=== PATIENT | female | born 1985 | race African-American/Black ===

== ENCOUNTER 2017-04-18 18:11 | Emergency (ER) | payer MEDICAID ==
--- NOTE | 2017-04-18 18:14 | ED Physician Documentation ---
PD HPI MHE - Stated complaint Stated Complaint: ANXIETY - History obtained from History obtained from: Patient - History of Present Illness Primary symptom: Other (31-year-old otherwise healthy woman with occasional panic attacks which have been worse over the last few days and intermittent feelings of anxiety. In the past Xanax has been helpful. 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 - Present Medications Home Medications: Ambulatory Orders Medication Instructions Recorded Confirmed Alprazolam [Xanax] 0.25 - 1 tab PO Q6HR PRN #20 tablet 04/18/17 - Allergies Allergies/Adverse Reactions: Allergies Allergy/AdvReac Type Severity Reaction Status Date / Time No Known Drug Allergies Allergy Verified 11/15/15 19:40 - Social History Does the pt smoke?: No Smoking Status: Never smoker Does the pt drink ETOH?: No Does the pt have substance abuse?: No - Immunizations Immunizations are current?: Yes - POLST Patient has POLST: No PD ED PE NORMAL - Vitals Vital signs reviewed: Yes - General General: Alert and oriented X 3, No acute distress - Cardiac Cardiac: RRR, No murmur - Respiratory Respiratory: Clear bilaterally - Neuro Neuro: Alert and oriented X 3 Eye Opening: Spontaneous Motor: Obeys Commands Verbal: Oriented GCS Score: 15 - Psych Psych: Normal mood, Normal affect Results - Vitals Vitals: Oxygen O2 Source Room air Departure - Departure Disposition: Home, Self Care Clinical Impression: Panic attack Condition: Good Record reviewed to determine appropriate education?: Yes Instructions: Alprazolam tablets, ED Panic Attack Prescriptions: Alprazolam [Xanax] 0.25 - 1 tab PO Q6HR PRN #20 tablet PRN Reason: Anxiety Comments: Call your doctor to arrange a follow-up appointment, make the next available appointment. In the interim, return anytime if worse or if new symptoms develop.
[2017-04-18 18:20] VITALS: BP 109/74
== END 2017-04-18 18:35 | disposition home or self-care (01) ==
LOC: ED 18:11
DX: F41.0 Panic disorder [episodic paroxysmal anxiety] (principal)
CPT/HCPCS: 99283

== ENCOUNTER 2017-11-05 17:07 | Emergency (ER) | payer SELFPAY ==
[2017-11-05] MEDS ORDERED: SUMAtriptan 6 MG/0.5 ML VIAL SUBQ STA (17:16)
--- NOTE | 2017-11-05 17:17 | ED Physician Documentation ---
PD HPI HEADACHE - Stated complaint Stated Complaint: MIGRAINE - History obtained from History obtained from: Patient - History of Present Illness Timing - onset: Other (She has had a gradual onset right retro-orbital headache since yesterday. She has these not infrequently. Is not the worst headache of her life. She feels like there is throbbing behind the right eye and is light sensitive. She tried [id number] meds including Benadryl and ibuprofen without relief. No possibility of . 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, Other - Present Medications Home Medications: Ambulatory Orders Medication Instructions Recorded Confirmed SUMAtriptan [Imitrex] 25 mg PO BID PRN #10 tablet 11/05/17 - Allergies Allergies/Adverse Reactions: Allergies Allergy/AdvReac Type Severity Reaction Status Date / Time No Known Drug Allergies Allergy Verified 04/18/17 18:20 - Social History Does the pt smoke?: No Smoking Status: Never smoker Does the pt drink ETOH?: No Does the pt have substance abuse?: No - Immunizations Immunizations are current?: Yes - POLST Patient has POLST: No PD ED PE NORMAL - Vitals Vital signs reviewed: Yes - General General: Alert and oriented X 3, No acute distress - HEENT HEENT: PERRL, EOMI, Pharynx benign - Neck Neck: Supple, no meningeal sign, No bony TTP - Neuro Neuro: Alert and oriented X 3, 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 As such I doubt subarachnoid hemorrhage. There are no infectious symptoms such as fever or stiff neck to make me suspect meningitis. No carbon monoxide exposure by history. She was given Imitrex subcutaneously with complete relief. - Sepsis Event Vital Signs: Vital Signs - 24 hr 11/05/17 17:17 Temperature 36.5 C Heart Rate 72 Respiratory 16 Rate Blood Pressure 104/62 O2 Saturation 100 Oxygen O2 Source Room air Departure - Departure Disposition: 01 Home, Self Care Clinical Impression: Migraine Qualifiers: Migraine type: with aura Status migrainosus presence: with status migrainosus Intractability: not intractable Qualified Code(s): G43.101 - Migraine with aura, not intractable, with status migrainosus Condition: Good Record reviewed to determine appropriate education?: Yes Instructions: ED Headache Migraine, Imitrex Prescriptions: SUMAtriptan [Imitrex] 25 mg PO BID PRN #10 tablet PRN Reason: Headache
[2017-11-05 17:22] VITALS: BP 104/62
== END 2017-11-05 18:09 | disposition home or self-care (01) ==
LOC: ED 17:07
DX: G43.101 Migraine with aura, not intractable, with status migrainosus (principal)
CPT/HCPCS: 96372; 99283

== ENCOUNTER 2017-11-06 10:36 | Emergency (ER) | payer SELFPAY ==
--- NOTE | 2017-11-06 11:46 | ED Physician Documentation ---
PD HPI HEADACHE - Stated complaint Stated Complaint: MIGRAINE - Chief complaint Chief Complaint: Neuro - History obtained from History obtained from: Patient - History of Present Illness Timing - onset: Yesterday Timing - onset during: Rest Timing - duration: Days (2) Timing - details: Gradual onset, Still present Worst headache ever?: No: Worst headache ever? (has not had this prolonged) Location: Left Quality: Throbbing, Aching Associated symptoms: Nausea. 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 Has had migraine persist into today and worse this morning.) Review of Systems Constitutional: denies: Fever, Chills, Myalgias Nose: denies: Rhinorrhea / runny nose, Congestion Throat: denies: Sore throat Respiratory: denies: Cough GI: reports: Nausea. 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, Other - Present Medications Home Medications: Ambulatory Orders Medication Instructions Recorded Confirmed SUMAtriptan [Imitrex] 25 mg PO BID PRN #10 tablet 11/05/17 Dexamethasone [Decadron] 4 mg PO DAILY #5 tablet 11/06/17 Ondansetron HCl [Zofran] 4 mg PO Q6H PRN #20 tablet 11/06/17 - Allergies Allergies/Adverse Reactions: Allergies Allergy/AdvReac Type Severity Reaction Status Date / Time No Known Drug Allergies Allergy Verified 11/06/17 11:09 - Social History Does the pt smoke?: No Smoking Status: Never smoker Does the pt drink ETOH?: No Does the pt have substance abuse?: No - Immunizations Immunizations are current?: Yes - POLST Patient has POLST: No PD ED PE NORMAL - Vitals Vital signs reviewed: Yes - General General: Alert and oriented X 3, Well developed/nourished - HEENT HEENT: Atraumatic, PERRL, EOMI (light sensitive), Moist mucous membranes, Pharynx benign - Neck Neck: Supple, no meningeal sign, No adenopathy - Cardiac Cardiac: RRR, No murmur - Respiratory Respiratory: Clear bilaterally - Derm Derm: Normal color, Warm and dry - Extremities Extremities: No tenderness to palpate, Normal ROM s pain - Neuro Neuro: Alert and oriented X 3, No motor deficit, Normal speech Results - Vitals Vitals: Vital Signs - 24 hr 11/06/17 11/06/17 11:05 13:34 Temperature 36.4 C L Heart Rate 65 75 Respiratory 16 18 Rate Blood Pressure 120/77 94/63 O2 Saturation 100 100 Oxygen O2 Source Room air PD MEDICAL DECISION MAKING - ED course Complexity details: re-evaluated patient (headahce gone with IV fluids and migraine "cocktail"), considered differential, d/w patient - Sepsis Event Vital Signs: Vital Signs - 24 hr 11/06/17 11/06/17 11:05 13:34 Temperature 36.4 C L Heart Rate 65 75 Respiratory 16 18 Rate Blood Pressure 120/77 94/63 O2 Saturation 100 100 Oxygen O2 Source Room air Departure - Departure Disposition: 01 Home, Self Care Clinical Impression: Migraine Qualifiers: Migraine type: without aura Status migrainosus presence: with status migrainosus Intractability: not intractable Qualified Code(s): G43.001 - Migraine without aura, not intractable, with status migrainosus Condition: Stable Record reviewed to determine appropriate education?: Yes Instructions: ED Headache Migraine Prescriptions: Dexamethasone [Decadron] 4 mg PO DAILY #5 tablet Ondansetron HCl [Zofran] 4 mg PO Q6H PRN #20 tablet PRN Reason: Nausea / Vomiting Comments: Drink lots of fluids. Consider continuing Decadron steroid daily for a few more days. For subsequent headaches use the previous Imitrex prescribed and can combine it with ibuprofen and ondansetron for nausea and see if that provides better and more consistent improvement. Follow-up with your primary care Discharge Date/Time: 11/06/17 14:28
[2017-11-06] MEDS ORDERED: diphenhydrAMINE INJ 50 MG/ML VIAL IVP STA (12:01)
[2017-11-06] MEDS ORDERED: KETOROLAC 60 MG/2 ML VIAL IVP STA (12:01)
[2017-11-06] MEDS ORDERED: DEXAMETHASONE 10 MG/ML VIAL IVP STA (12:01)
[2017-11-06] MEDS ORDERED: METOCLOPRAMIDE 10 MG/2 ML VIAL IVP STA (12:01)
[2017-11-06] MEDS ORDERED: SODIUM CHLORIDE 0.9% 1,000 ML IV ONE (12:02)
[2017-11-06 13:35] VITALS: BP 94/63
== END 2017-11-06 14:28 | disposition home or self-care (01) ==
LOC: ED 10:36
DX: G43.001 Migraine without aura, not intractable, with status migrainosus (principal)
CPT/HCPCS: 96361; 96374; 96375; 99283; J1200; J2765

== ENCOUNTER 2020-06-22 00:51 | Emergency (ER) | payer SELFPAY ==
--- NOTE | 2020-06-22 01:12 | ED Physician Documentation ---
PD HPI HEADACHE - Stated complaint Stated Complaint: CORTÉS/VOMITING - Chief complaint Chief Complaint: Neuro - History obtained from History obtained from: Patient - History of Present Illness Timing - onset: Enter time (18:00), Today Timing - onset during: Rest Timing - details: Abrupt onset Pain level max: 10 Pain level now: 10 Location: Right Associated symptoms: Nausea, Vomiting, Vision changes. No: Fever Improved by: Dark room Worsened by: Light Similar symptoms before: Diagnosis (migraine CORTÉS) Recently seen: Not recently seen - Additional information Additional information: Patient presents complaining of right retro-orbital headache, rapid onset at approximately 6 PM today while at home at rest while on a video conference call. she has nausea and vomiting, as well as decreased vision in the right eye, associated with this headache. Patient says she has had similar headaches as well as similar visual changes with previous migraine headaches. Review of Systems Constitutional: reports: Reviewed and negative Eyes: reports: Decreased vision (right eye), Photophobia GI: reports: Nausea, Vomiting. denies: Abdominal Pain Neurologic: reports: Headache. 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, Other - Present Medications Home Medications: Ambulatory Orders Medication Instructions Recorded Confirmed Ondansetron Odt [Zofran] 4 mg TL Q6H PRN #14 tablet 06/22/20 Sumatriptan Succinate [Imitrex] 50 mg PO ONCE PRN #20 tablet 06/22/20 - Allergies Allergies/Adverse Reactions: Allergies Allergy/AdvReac Type Severity Reaction Status Date / Time No Known Drug Allergies Allergy Verified 11/06/17 11:09 - Social History Does the pt smoke?: No Smoking Status: Never smoker Does the pt drink ETOH?: No Does the pt have substance abuse?: No - Immunizations Immunizations are current?: Yes - POLST Patient has POLST: No PD ED PE NORMAL - Vitals Vital signs reviewed: Yes - General General: Alert and oriented X 3, Well developed/nourished, Other (obvious painful discomfort, keeping eyes closed and lights are off in room for patient comfort) - HEENT HEENT: PERRL, EOMI - Neck Neck: Supple, no meningeal sign - Cardiac Cardiac: RRR, No murmur - Respiratory Respiratory: No respiratory distress, Clear bilaterally - Neuro Neuro: Alert and oriented X 3, No motor deficit, No sensory deficit, Normal speech Eye Opening: Spontaneous Motor: Obeys Commands Verbal: Oriented GCS Score: 15 Results - Vitals Vitals: Vital Signs - 24 hr 06/22/20 06/22/20 06/22/20 00:53 02:48 04:10 Temperature 36.6 C 36.6 C Heart Rate 60 57 L 67 Respiratory 16 16 16 Rate Blood Pressure 112/79 109/85 H 110/83 H O2 Saturation 100 100 98 Oxygen O2 Source Room air PD MEDICAL DECISION MAKING - ED course Complexity details: reviewed old records, re-evaluated patient, considered differential, d/w patient ED course: patient presents with severe right sided headache associated with nausea, vomiting, and decreased vision in her right eye. Patient says she has had similar migraine headaches in the past that have been associated with this visual change. We discussed options for treatment, and mutual decision made to use the same medications that were given on her last [facility] ED visit for migraine headache (October 2017). she is given IV Reglan, Toradol, Benadryl, Decadron. She is also given SQ Imitrex. She is also given normal saline IV. on reevaluation she is sleeping and in NAD, awakens to verbal and reports significant improvement in symptoms. she did not require further medications and was discharged in NAD, AAOx3. she is provided prescriptions for zofran and PO imitrex. Departure - Departure Disposition: 01 Home, Self Care Clinical Impression: Migraine Qualifiers: Migraine type: unspecified Status migrainosus presence: without status migrainosus Intractability: not intractable Qualified Code(s): G43.909 - Migraine, unspecified, not intractable, without status migrainosus Condition: Good Instructions: Imitrex, ED Headache Migraine Prescriptions: Sumatriptan Succinate [Imitrex] 50 mg PO ONCE PRN #20 tablet PRN Reason: Migraine Ondansetron Odt [Zofran] 4 mg TL Q6H PRN #14 tablet PRN Reason: Nausea / Vomiting Discharge Date/Time: 06/22/20 04:15
[2020-06-22] MEDS ORDERED: SODIUM CHLORIDE 0.9% 1,000 ML IV STA (01:21)
[2020-06-22] MEDS ORDERED: SUMAtriptan 6 MG/0.5 ML VIAL SUBQ STA (01:22)
[2020-06-22] MEDS ORDERED: KETOROLAC 30 MG/ML VIAL IVP STA (01:22)
[2020-06-22] MEDS ORDERED: METOCLOPRAMIDE 10 MG/2 ML VIAL IVP STA (01:22)
[2020-06-22] MEDS ORDERED: DEXAMETHASONE 10 MG/ML VIAL IVP STA (01:22)
[2020-06-22] MEDS ORDERED: diphenhydrAMINE INJ 50 MG/ML VIAL IVP STA (01:22)
[2020-06-22 04:18] VITALS: BP 110/83
== END 2020-06-22 04:15 | disposition home or self-care (01) ==
LOC: ED 00:51
DX: G43.909 Migraine, unspecified, not intractable, without status migrainosus (principal)
CPT/HCPCS: 96372; 96374; 96375; 99284; 99285; J1200; J2765; 36415; 80048; 84702; 85025

== ENCOUNTER 2020-11-03 14:29 | Emergency (ER) | payer OTHER ==
[2020-11-03 14:38] VITALS: BP 113/68
--- NOTE | 2020-11-03 15:16 | ED Physician Documentation ---
PD HPI BACK PAIN - Stated complaint Stated Complaint: BACK PX - Chief complaint Chief Complaint: Back Pain - History obtained from History obtained from: Patient - History of Present Illness Timing - onset: How many days ago (2) Timing - duration: Days (2) Timing - details: Abrupt onset, Still present Location: Upper, Right Quality: Pain, Spasm, Sharp Associated symptoms: No: Fever, Weakness, Numbness, Incontinent of urine, Unable to urinate, Hematuria, Incontinent of stool Improves with: Rest, Ice, Meds Worsened by: Movement, Lifting, Twisting, Palpation Contributing factors: Lifting, Other (injured at work with lifting a patient.) Similar symptoms before: Diagnosis (sciatica) Recently seen: Other - Additional information Additional information: 35-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 Today she is coming to work pain was bothering her bad enough that she came back to the doctor's office and was medicated with IM Toradol and dexamethasone. She had some improvement with this but really was too distracted with her pain to continue working. Review of Systems Constitutional: denies: Fever Eyes: denies: Decreased vision Ears: denies: Ear pain Nose: denies: Congestion Throat: denies: Sore throat Cardiac: denies: Chest pain / pressure Respiratory: denies: Dyspnea, Cough, Wheezing GI: denies: Abdominal Pain, Nausea, Vomiting, Constipation, Diarrhea : denies: Dysuria, Frequency Skin: denies: Rash Musculoskeletal: reports: Back pain. 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, Other - Present Medications Home Medications: Ambulatory Orders Medication Instructions Recorded Confirmed Ondansetron Odt [Zofran] 4 mg TL Q6H PRN #14 tablet 06/22/20 Sumatriptan Succinate [Imitrex] 50 mg PO ONCE PRN #20 tablet 06/22/20 Cyclobenzaprine [Flexeril] 10 mg PO TID PRN #20 tablet 11/03/20 HYDROcod/ACETAM 5/325 [[place] 5/325] 1 - 2 tablet PO Q6H PRN #14 tablet 11/03/20 - Allergies Allergies/Adverse Reactions: Allergies Allergy/AdvReac Type Severity Reaction Status Date / Time No Known Drug Allergies Allergy Verified 11/03/20 14:37 - Social History Does the pt smoke?: No Smoking Status: Never smoker Does the pt drink ETOH?: No Does the pt have substance abuse?: No - Immunizations Immunizations are current?: Yes - POLST Patient has POLST: No PD ED PE NORMAL - Vitals Vital signs reviewed: Yes (normal ) - General General: Alert and oriented X 3, No acute distress, Well developed/nourished - HEENT HEENT: Atraumatic, PERRL, EOMI - Neck Neck: Supple, no meningeal sign, No bony TTP - Cardiac Cardiac: RRR, No murmur - Respiratory Respiratory: No respiratory distress, Clear bilaterally, Other (There is marked point tenderness to the rhomboid muscles on the right side. This brings tears to the patient's eyes.) - Abdomen Abdomen: Soft, Non tender - Back Back: No CVA TTP, No spinal TTP - Derm Derm: Normal color, Warm and dry, No rash - Extremities Extremities: No deformity, No edema - Neuro Neuro: Alert and oriented X 3, catering sales manager 2-12 intact, No motor deficit, No sensory deficit, Normal speech Eye Opening: Spontaneous Motor: Obeys Commands Verbal: Oriented GCS Score: 15 - Psych Psych: Normal mood, Normal affect Results - Vitals Vitals: Vital Signs - 24 hr 11/03/20 14:34 Temperature 36.4 C L Heart Rate 86 Respiratory 20 Rate Blood Pressure 113/68 O2 Saturation 100 Oxygen O2 Source Room air PD MEDICAL DECISION MAKING - ED course Complexity details: considered differential, d/w patient ED course: 35-year-old female who injured herself at work with a strain of the right rhomboid muscles. Despite treatment here in the emergency department earlier with dexamethasone and Toradol the patient is distracted by pain and unable to continue to work. She will likely need 2 to 5 days off and pain medication a muscle relaxant. Departure - Departure Disposition: 01 Home, Self Care Clinical Impression: Rhomboid muscle strain Qualifiers: Encounter type: initial encounter Qualified Code(s): S29.012A - Strain of muscle and tendon of back wall of thorax, initial encounter Condition: Stable Instructions: ED Sprain Thoracic Spine Follow-Up: [facility] [Provider Group] Prescriptions: Cyclobenzaprine [Flexeril] 10 mg PO TID PRN #20 tablet PRN Reason: Spasms HYDROcod/ACETAM 5/325 [[place] 5/325] 1 - 2 tablet PO Q6H PRN #14 tablet PRN Reason: Pain Forms: Activity restrictions
== END 2020-11-03 15:37 | disposition home or self-care (01) ==
LOC: ED 14:29
DX: S29.012A Strain of muscle and tendon of back wall of thorax, initial encounter (principal); X50.0XXA Overexertion from strenuous movement or load, initial encounter; Y93.F2 Activity, caregiving, lifting; Y92.238 Other place in hospital as the place of occurrence of the external cause; Y99.0 Civilian activity done for income or pay
CPT/HCPCS: 99282; 99284

== ENCOUNTER 2021-01-12 09:46 | Emergency (ER) | payer SELFPAY ==
[2021-01-12] MEDS ORDERED: PROCHLORPERAZINE 10 MG/2 ML VIAL IVP STA (10:20)
[2021-01-12] MEDS ORDERED: SODIUM CHLORIDE 0.9% 1,000 ML IV STA (10:20)
[2021-01-12] MEDS ORDERED: KETOROLAC 30 MG/ML VIAL IVP STA (10:21)
[2021-01-12] MEDS ORDERED: DEXAMETHASONE 10 MG/ML VIAL IVP STA (10:21)
[2021-01-12] MEDS ORDERED: diphenhydrAMINE INJ 50 MG/ML VIAL IVP STA (10:21)
--- NOTE | 2021-01-12 11:04 | ED Physician Documentation ---
PD HPI HEADACHE - Stated complaint Stated Complaint: HEAD PX - Chief complaint Chief Complaint: Neuro - History obtained from History obtained from: Patient - History of Present Illness Timing - onset: Today Timing - onset during: Light activity Timing - duration: Hours Timing - details: Abrupt onset, Still present Location: Front Quality: Throbbing Associated symptoms: Nausea. No: Fever, Stiff neck, Vomiting Improved by: Rest, Dark room Worsened by: Light, Noise, Moving Contributing factors: No: Anticoagulated Similar symptoms before: Diagnosis (migraine) Recently seen: Not recently seen - Additional information Additional information: 35-year-old female with a history of migraines is out of her Imitrex and she has developed symptoms this morning of migraine typical of her usual symptoms. She is having some nausea she has a severe headache that is throbbing. She denies any other current illness. Review of Systems Constitutional: denies: Fever Eyes: reports: Photophobia. 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, Other - Present Medications Home Medications: Ambulatory Orders Medication Instructions Recorded Confirmed Ondansetron Odt [Zofran] 4 mg TL Q6H PRN #14 tablet 06/22/20 Sumatriptan Succinate [Imitrex] 50 mg PO ONCE PRN #20 tablet 06/22/20 Cyclobenzaprine [Flexeril] 10 mg PO TID PRN #20 tablet 11/03/20 HYDROcod/ACETAM 5/325 [[place] 5/325] 1 - 2 tablet PO Q6H PRN #14 tablet 11/03/20 Sumatriptan Succinate [Imitrex] 50 mg PO ONCE PRN #20 tablet 01/12/21 - Allergies Allergies/Adverse Reactions: Allergies Allergy/AdvReac Type Severity Reaction Status Date / Time No Known Drug Allergies Allergy Verified 01/12/21 09:53 - Social History Does the pt smoke?: No Smoking Status: Never smoker Does the pt drink ETOH?: No Does the pt have substance abuse?: No - Immunizations Immunizations are current?: Yes - POLST Patient has POLST: No PD ED PE NORMAL - General General: Alert and oriented X 3, Well developed/nourished, Other (Appears to be in pain with copy lathe operator tone and flattened affect) - HEENT HEENT: Atraumatic, PERRL, EOMI - Neck Neck: Supple, no meningeal sign, No bony TTP - Respiratory Respiratory: No respiratory distress - Derm Derm: Normal color, Warm and dry, No rash - Extremities Extremities: No deformity, No edema - Neuro Neuro: Alert and oriented X 3, sales development associate 2-12 intact, No motor deficit, Normal speech Eye Opening: Spontaneous Motor: Obeys Commands Verbal: Oriented GCS Score: 15 - Psych Psych: Normal mood Results - Vitals Vitals: Vital Signs - 24 hr 01/12/21 09:51 Temperature 36.6 C Heart Rate 60 Respiratory 16 Rate Blood Pressure 106/78 O2 Saturation 100 Oxygen O2 Source Room air PD MEDICAL DECISION MAKING - ED course Complexity details: reviewed old records, reviewed results, re-evaluated patient, considered differential, d/w patient ED course: 35-year-old female with a history of migraine has a migraine that started about midnight last night 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 She is treated for acute migraine headache with a migraine cocktail consisting of a liter of saline 10 mg of dexamethasone 30 mg of Toradol 25 mg of Benadryl and 10 mg of Compazine. She felt improved at the time of discharge. We are prescribing additional sumatriptan for the patient. Departure - Departure Disposition: 01 Home, Self Care Clinical Impression: Migraine Qualifiers: Migraine type: with aura Status migrainosus presence: without status migrainosus Intractability: not intractable Qualified Code(s): G43.109 - Migraine with aura, not intractable, without status migrainosus Condition: Stable Instructions: ED Headache Migraine Follow-Up: [facility] [place] [Provider Group] Prescriptions: Sumatriptan Succinate [Imitrex] 50 mg PO ONCE PRN #20 tablet PRN Reason: Migraine
[2021-01-12 11:20] VITALS: BP 133/92
== END 2021-01-12 12:09 | disposition home or self-care (01) ==
LOC: ED 09:46
DX: G43.109 Migraine with aura, not intractable, without status migrainosus (principal)
CPT/HCPCS: 96374; 96375; 99284; 99285; J1200

== ENCOUNTER 2021-11-21 07:04 | Outpatient (CLI) | payer BC ==
--- NOTE | 2021-11-21 09:01 | Ultrasound Report ---
PROCEDURE: Pelvic w/Transvaginal INDICATIONS: PRESENCE OF IUD TECHNIQUE: Real-time scanning was performed of the pelvic organs, with image documentation. Additional endovagi nal scanning was necessary due to incomplete visualization of the adnexal and endometrial structures by transabdominal scanning. COMPARISON: None. FINDINGS: Uterus: The uterus is anteverted measuring 8.2 x 3.2 x 4.9 cm. Volume is about 68 cc. IUD is in expec byron position. Endometrium measures 2 mm. Ovaries: Right ovary measures 4 x 2.2 cm, for a volume of 9 cc. Left ovary measures 2.5 x 2.3 cm, for a volume of 5 cc. Follicles are present bilaterally. Other: No pathologic free abdominal or pelvic fluid. IMPRESSION: Expected positioning of IUD. Otherwise no significant sonographic abnormality. Reviewed by: Michael Raza MD on 11/21/2021 9:00 AM PDT Approved by: Michael Raza MD on 11/21/2021 9:00 AM PDT Station ID: [id number]
== END 2021-11-21 07:05 | disposition home or self-care (01) ==
LOC: DI 07:04
PROVIDERS: ATTEND Nurse Practitioner
DX: Z97.5 Presence of (intrauterine) contraceptive device (principal)

== ENCOUNTER 2022-06-25 10:49 | Day surgery (SDC) | payer BC ==
[2022-06-25] MEDS: LACTATED RINGERS 1,000 ML IV ONE (11:07)
[2022-06-25 11:21] LABS: HCG UR QUAL NEGATIVE
[2022-06-25] MEDS ORDERED: ONDANSETRON 4 MG/2 ML VIAL ONE (11:25)
[2022-06-25] MEDS ORDERED: PROPOFOL 200 MG/20 ML VIAL IVP ONE (11:25)
[2022-06-25] MEDS ORDERED: MIDAZOLAM 2 MG/2 ML VIAL ONE (11:25)
--- NOTE | 2022-06-25 11:55 | OPERATIVE REPORT ---
Operative Report - General Planned Procedure: IUD removal under anesthesia Pre-Op Diagnosis: Retained IUD Procedure Performed: IUD removal under anesthesia Post Op Diagnosis: Retained IUD - Procedure Note Primary Surgeon: Ketan Heredia MD Secondary Surgeon: ROYCE Richey Anesthesia Provider: Jeni Holm CRNA Anesthesia Technique: General LMA Pathology: None IV Fluids (mL): 100 Estimated Blood Loss (mL): 0 Urine Output (mL): 0 (Voided prior to procedure) Complications: None - Other Other Information/Narrative: Due to the patient's anxiety, she was taken to the OR for IUD removal under anesthesia. She required LMA general anesthesia for relaxation. She is placed in dorsolithotomy position with legs in great white stirrups. The perineum was cleansed with Hibiclens. She was prepped and draped in sterile fashion. A bivalve speculum is used to examine the cervix and IUD strings were noted protruding from the cervical os. They are grasped with a ring forcep and with gentle traction, the IUD was easily removed. Patient tolerated procedure well and was taken the PACU in good condition.
[2022-06-25] MEDS: LACTATED RINGERS 500 ML IV ONE (12:02)
[2022-06-25] MEDS ORDERED: NALOXONE 0.4 MG/ML VIAL IVP PRN (12:09)
[2022-06-25] MEDS ORDERED: ePHEDrine 50 MG/ML VIAL IVP PRN (12:09)
[2022-06-25] MEDS ORDERED: METOCLOPRAMIDE 10 MG/2 ML VIAL IVP PRN (12:09)
[2022-06-25] MEDS ORDERED: HYDROmorphone 0.5 MG/0.5 ML SYRINGE IVP PRN (12:09)
[2022-06-25] MEDS ORDERED: ATROPINE ABBOJECT 1 MG/10 ML SYRINGE IVP PRN (12:09)
[2022-06-25] MEDS ORDERED: ONDANSETRON 4 MG/2 ML VIAL IVP PRN (12:09)
[2022-06-25] MEDS ORDERED: fentaNYL 100 MCG/2 ML VIAL IVP PRN (12:09)
[2022-06-25] MEDS ORDERED: MORPHINE 2 MG/ML CARPUJECT IVP PRN (12:09)
--- NOTE | 2022-06-25 12:09 | ANESTHESIA ---
Pre-Anesthesia VS, & Labs - Diagnosis desires IUD removal - Procedure IUD removal under anesthesia Vital Signs: Temp Pulse Resp BP Pulse Ox O2 Flow Rate 36.6 C 57 L 16 100/60 100 06/25/22 12:00 06/25/22 12:00 06/25/22 12:00 06/25/22 12:06/25/22 12:00 Height: 5 ft 2 in Weight (kg): 51.71 kg Body Mass Index: 20.8 BMI Classification: Normal - NPO >8 hours - Is Patient ?: No Home Medications and Allergies Home Medications: Ambulatory Orders Alprazolam [Xanax] 0.25 mg PO DAILY PRN 06/18/22 Aspirin 500 gm MC PRN PRN 06/25/22 diphenhydrAMINE [Benadryl] 25 mg PO PRN PRN 06/25/22 Alprazolam [Xanax] 0.25 mg PO DAILY PRN 06/18/22 Aspirin 500 gm MC PRN PRN 06/25/22 diphenhydrAMINE [Benadryl] 25 mg PO PRN PRN 06/25/22 Allergies/Adverse Reactions: Allergies Allergy/AdvReac Type Severity Reaction Status Date / Time No Known Drug Allergies Allergy Verified 01/12/21 09:53 Anes History & Medical History - Anesthetic History Anesthesia Complications: reports: No previous complications Family history of Anesthesia Complications: Denies Family history of Malignant Hyperthermia: Denies - Medical History Cardiovascular: reports: Other Pulmonary: reports: None Gastrointestinal: reports: None Urinary: reports: None Neuro: reports: Migraines Musculoskeletal: reports: None Endocrine/Autoimmune: reports: None Smoking Status: Never smoker Psychosocial: reports: Anxiety - Surgical History Gynecologic: reports: Other Exam General: Alert, Oriented x3, Cooperative Dental: WNL Mouth Openin Fingerbreadth Neck Mobility: Normal Mallampati classification: II Thyromental Distance: 4-6 cm Respiratory: Lungs clear Cardiovascular: Regular rate Plan Anesthesia Type: General, Total IV Consent for Procedure(s) Verified and Reviewed: Yes Code Status: Attempt Resuscitation ASA classification: 2-Mild systemic disease Is this case an emergency?: No
[2022-06-25 12:51] VITALS: BP 107/75
[2022-06-25] MEDS ORDERED: LACTATED RINGERS 1,000 ML IV SCH (13:00)
--- NOTE | 2022-06-25 14:43 | ANESTHESIA POST OP EVALUATION ---
Anesthesia Post Eval - Post Anesthesia Eval Vitals: Last Vital Signs Temp 36.4 C L 06/25/22 12:45 Pulse 63 06/25/22 12:45 Resp 16 06/25/22 12:45 BP 107/75 06/25/22 12:45 Pulse Ox 100 06/25/22 12:45 O2 Flow Rate CV Function Including HR & BP: Stable Pain Control: Satisfactory Nausea & Vomiting: Negative Mental Status: Baseline Respiratory Status: Airway Patent Hydration Status: Satisfactory Anesthesia Complications: None
== END 2022-06-25 10:50 | disposition home or self-care (01) ==
LOC: SDS 10:49
PROVIDERS: ATTEND Obstetrics & Gynecology
DX: Z30.432 Encounter for removal of intrauterine contraceptive device (principal); F41.9 Anxiety disorder, unspecified
CPT/HCPCS: 58301; 81025; J7120